=== PATIENT | male | born 1940 | race Caucasian/White ===

== ENCOUNTER 2018-12-18 14:44 | Emergency (ER) | payer MEDICARE ==
[~2018-12-18] VITALS: Ht 172.7 cm; Wt 90.0 kg
[~2018-12-18 14:44] MED LIST: ACCUPRIL20 MG PO; ADLT ASA LOW81 MG PO; AUGMENTIN500TAB PO; AZITHROMYCIN250 MG PO; CRESTOR20 MG PO; HYDROCHLOROT25 MG PO; K-DUR/KLOR-CON20 MEQ PO; MEDDOSEPAK PO; METOPROL TAR25 MG PO; NITROSTAT0.4 MG PO; PROAIR HFA IN; PROTONIX40 M2 PO; TOPROL XL25 M1 PO; ZYRTEC-D ALG PO
[2018-12-18 15:28] LABS: IMMATURE GRANULOCYTES 0.4 % (0.0-5.0); MEAN CELL VOLUME 97.5 fL CALC (80.0-100.0); MEAN CORPUSCULAR HGB 31.4 pG CALC (26.0-32.0); MEAN CORPUSCULAR HGB CONC 32.2 g/L CALC (32.0-36.0); NEUT# 6.65 thou/uL (1.82-7.42); RED BLOOD COUNT 3.95 mill/uL (4.70-6.10); RED CELL DISTRI WIDTH 13.6 % (11.5-15.5)
[2018-12-18 15:31] LABS: HEMATOCRIT 38.5 % (39.0-50.0); HEMOGLOBIN 12.4 g/dl (14.0-18.0)
[2018-12-18 16:01] LABS: ACT PARTIAL THROMBO TIME 21.7 SECONDS (20.0-32.5); INTERNATIONAL NORMALIZED RATIO 1.1 RATIO (0.7-1.3); PROTHROMBIN TIME 11.1 SECONDS (9.0-12.5)
[2018-12-18 16:17] LABS: ALBUMIN 3.8 g/dL (3.2-5.0); ALKALINE PHOSPHATASE 63 u/l (38-126); ANION GAP 12 (6-22 (CALC)); BILIRUBIN, TOTAL 0.9 mg/dL (0.0-1.4); BUN 10 mg/dL (8-23); BUN/CREATININE RATIO 13 (12-20 (CALC)); CARBON DIOXIDE 28 mmol/l (22-30); CHLORIDE 101 mmol/l (95-108); CREATININE 0.8 mg/dL (0.7-1.3); ETHYL ALCOHOL 0 mg/dl (0-30); GFR > 60 ML/MIN (>=60 (CALC)); GFR FOR AFR.AMER. > 60 ML/MIN (>=60 (CALC)); POTASSIUM 4.1 mmol/l (3.5-5.1); SGOT/AST 30 u/l (19-48); SODIUM 137 mmol/l (137-146); TOTAL PROTEIN 6.4 g/dL (6.3-8.2)
[2018-12-18] MEDS ORDERED: COREG6.25 MG PO (16:44)
[2018-12-18] MEDS ORDERED: ESCITALOPRAM OX10 MG PO (16:45)
[2018-12-18] MEDS ORDERED: FUROSEMIDE20 MG PO (16:45)
[2018-12-18] MEDS ORDERED: PROTONIX40 M2 PO (16:46)
[2018-12-18] MEDS ORDERED: ELIQUIS5 MG PO (16:47)
[2018-12-18] MEDS ORDERED: LIPITOR20 MG PO (16:48)
[2018-12-18] MEDS ORDERED: DULERA1 AE1 IN (16:50)
[2018-12-18] MEDS ORDERED: VENTOLIN HFA IN (16:51)
[2018-12-18 18:26] VITALS: BP 157/68
== END 2018-12-18 18:26 ==
LOC: ED 14:44
DX: S73.014A Posterior dislocation of right hip, initial encounter (principal); S32.491A Other specified fracture of right acetabulum, initial encounter for closed fracture; I11.0 Hypertensive heart disease with heart failure; I50.9 Heart failure, unspecified; J44.9 Chronic obstructive pulmonary disease, unspecified; I25.10 Atherosclerotic heart disease of native coronary artery without angina pectoris; W01.0XXA Fall on same level from slipping, tripping and stumbling without subsequent striking against object, initial encounter; Y92.009 Unspecified place in unspecified non-institutional (private) residence as the place of occurrence of the external cause; Z95.5 Presence of coronary angioplasty implant and graft; Z79.01 Long term (current) use of anticoagulants